=== PATIENT | male | born 1975 | race Caucasian/White ===

== ENCOUNTER 2024-01-02 08:26 | Emergency (ER) | payer SELFPAY ==
[2024-01-02 08:41] VITALS: BP 145/90
[2024-01-02 09:15] VITALS: BMI 36.2
--- NOTE | 2024-01-02 09:24 | ED.GENMED ---
History of Present Illness
General
Chief Complaint: Back Pain
Source: patient
Exam Limitations: none
Time Seen by Provider: 01/02/24 09:08
History of Present Illness
History of Present Illness:
56-year-old male presents complaining of lower back pain that occasionally radiates down the left leg starting this morning. He slipped in the kitchen at work and fell backwards onto his back. No headache. No loss of conscious. He does have a
history of microdiscectomy of the lumbar spine. No bowel or bladder dysfunction. No other complaints
Past History
Past History
ED Past Medical History: None
ED Past Surgical History: None
Patient has exhibited threatening behavior?: No
Social History
Tobacco: Non-smoker
Alcohol: Occasional
Drug: None
Living: with family
Employment: Employed
Phy Exam
Physical Exam
Physical Exam:
General: Well-appearing male no acute distress
HEENT: Normocephalic
Musculoskeletal exam: Patient is slightly tender to the lower lumbar spine into the left of the lower lumbar spine. No deformities noted
Neurologic: Normal gait good sensation to the left and light right leg. Negative straight leg raise bilaterally.
Ext: no cyanosis
Course
Orders/Labs/Results
Orders:
Orders
01/02/24 09:20
CR Lumbar Spine 2 Or 3 Views Urgent
Comment:
Reason For Exam: back pain after slip and fall
Vital Signs
Initial and Last Documented VS:
Initial Vital Signs
Temp Pulse Resp BP Pulse Ox
98.5 F 59 16 145/90 98
01/02/24 08:41 01/02/24 08:41 01/02/24 08:41 01/02/24 08:41 01/02/24 08:41
Last Documented Vital Signs
Temp Pulse Resp BP Pulse Ox
98.5 F 59 16 145/90 98
01/02/24 08:41 01/02/24 08:41 01/02/24 08:41 01/02/24 08:41 01/02/24 08:41
MDM/Problems Addressed
Differential Diagnosis Includes:
X-rays lumbar spine pending to evaluate for fracture. Suspect possible muscular strain. He does complain of left leg. Question also radiculopathy but there is no red flags to suggest cauda equina or infectious source.
*Critical Care Note
Total Time (30-74mins, 75-104mins- exclusive of procedures): Not Applicable
Update Note
Update Note:
X-rays lumbar spine were personally visualized and are negative for acute finding. I suspect underlying strain of the lumbar spine. Perhaps there is an element of mild radiculopathy given the left leg comfort. Recommend Tylenol for pain. Also
prescribed steroids in the event radicular symptoms get worse. He was to follow-up with his work-related physician for further evaluation
ED Attending Note
-
Portions of this chart may have been created with voice recognition software.� Occasional wrong word or��sound alike� substitutions may have occurred due to the inherent limitations of voice recognition software.
Discharge Plan
Departure
Patient Disposition: Home (Routine Discharge)
Date of Disposition: 01/02/24
Time of Disposition: 10:48
Patient with high blood pressure during this ER visit?: No
Discharge Problem:
Lumbar strain
Instructions: Radiculopathy (DC)
Prescriptions:
New
prednisone 10 mg Tablet
See Rx Instructions .ROUTE .COMPLEX Qty: 30 0RF
Rx Instructions:
Take By Mouth:
40 mg daily x3 days, 30 mg daily x3 days,
20 mg daily x3 days, 10 mg daily x3 days.
No Action
tadalafil [Cialis] 20 MG tablet
20 mg PO DAILY PRN (Reason: ass needed)
prednisone 50 MG tablet
50 mg PO DAILY Qty: 4 0RF
Referrals:
Mayte Jasso MD [Family Provider] -
Activity Restrictions/Additional Instructions:
Continue Tylenol for pain. Use prednisone as directed. Return for worsening symptoms otherwise follow-up with your work-related physician
Interventions
Interventions:
*Risk Screen - Suicide Last Done: 01/02/24 08:41
*General Assessment Last Done: 01/02/24 08:41
*Neglect/Abuse Screening Last Done: 01/02/24 08:41
ED- Fall Risk Assessment Last Done: 01/02/24 09:16
*ED COVID-19 Vaccine History Last Done: 01/02/24 09:16
ED-Musculoskeletal Assessment Last Done: 01/02/24 09:17
Discharge Date and Time
Print Language: [id number]
== END 2024-01-02 11:09 | disposition home or self-care (01) ==
LOC: EMR 08:26
PROVIDERS: EMERGENCY PHYSICIAN Emergency Medicine; FAMILY PHYSICIAN Student in an Organized Health Care Education/Training Program
DX: S39.012A Strain of muscle, fascia and tendon of lower back, initial encounter (principal); M79.605 Pain in left leg; W01.0XXA Fall on same level from slipping, tripping and stumbling without subsequent striking against object, initial encounter; Y93.89 Activity, other specified; Y92.89 Other specified places as the place of occurrence of the external cause; Y99.0 Civilian activity done for income or pay; Z88.6 Allergy status to analgesic agent
CPT/HCPCS: 99283; 72100